=== PATIENT | male | born 1995 | race Caucasian/White ===

== ENCOUNTER → 2022-05-08 09:18 | Outpatient (CLI) | payer OTHER, SELFPAY | PROVIDERS: Family Provider Family Medicine; Visit Provider Physician Assistant | DX: J02.9 Acute pharyngitis, unspecified (principal) | CPT/HCPCS: 87070; 87147 ==

== ENCOUNTER → 2022-09-04 11:53 | Outpatient (CLI) | payer SELFPAY | PROVIDERS: Family Provider Family Medicine; Visit Provider Registered Nurse | DX: J02.9 Acute pharyngitis, unspecified (principal) | CPT/HCPCS: 87070 ==

== ENCOUNTER → 2023-07-03 | Outpatient (CLI) | payer OTHER, SELFPAY ==
--- NOTE | 2023-07-03 | DI.ECHO.S_ITS ---
[place] +---------+ [facility] +---------+ : : [address] : : : : [id number] : : : : Phone: [phone]+ Echocardiogram Report + + :Name: NOEL NGUYEN Study Date: 07/03/2023 Height: 71 in : :[facility] ReadingLocation: Weight: 190 lb : : Gender: Male BSA: 2.1 m2 : :: 1995 Age: 28 yrs BP: 128/84 mmHg: :Reason For Study: PSVT : :Ordering Physician: JOHNNY, : :TIFFANY Performed By: Carie Braun : :Referring: TIFFANY JOHN : + + Interpretation Summary 1) Normal left ventricular thickness, size, wall motion, and systolic function (EF 60-65%). 2) Normal right ventricular size and function. 3) No significant valvular abnormalities. 4) Compared to the Echo done 06/28/2015, no significant change. Procedure: A two-dimensional transthoracic echocardiogram with color flow and Doppler was performed. The study quality was technically adequate. Comparison is made with the echocardiogram of 06/28/2015. The patient was in sinus rhythm with heart rates between 62-74 bpm during the exam. Left Ventricle: The left ventricle is normal in size and wall thickness. The ejection fraction is estimated to be 55-60%. Left ventricular systolic function appears normal without focal wall motion abnormalities. Diastolic parameters suggest probable normal left ventricular diastolic function and normal filling pressures. Right Ventricle: The right ventricle is normal in size and function. Atria: The left atrial size is normal. Right atrial size is normal. There is no Doppler evidence for an interatrial shunt. Mitral Valve: The mitral valve is normal in structure and function. There is trace mitral regurgitation. Aortic Valve: The aortic valve is trileaflet. The aortic valve opens well. There is no aortic valve stenosis. No aortic regurgitation is present. Tricuspid Valve: The tricuspid valve is normal in structure and function. There is mild tricuspid regurgitation. Pulmonary artery pressures cannot be estimated because of the lack of a measurable TR jet velocity. Pulmonic Valve: The pulmonic valve leaflets are thin and pliable; valve motion is normal. There is mild pulmonic regurgitation. Great Vessels: The aortic root is normal size. The dimensions of the ascending aorta are normal. The IVC is of normal diameter and collapses greater than 50% with a sniff. This suggests a low right atrial pressure of 3 mm Hg. Pericardium/ Pleura There is no pericardial effusion. There is no pleural effusion. MMode/2D Measurements & Calculations LVIDd: 5.0 cm LVOT diam: 2.4 cm LVIDs: 3.5 cm Ao root diam: 3.3 cm FS: 30.4 % asc Aorta Diam: 3.0 cm EPSS: 0.73 cm Ao Arch Diam (Prox Trans): 2.4 cm IVSd: 0.69 cm LVPWd: 0.70 cm LV paz. diameter/BSA (cm/m^2): 2.4 LV sys. diameter/BSA (cm/m^2): 1.7 LA A2 area: 15.2 cm2 RA long axis: 4.6 cm LA A4 area: 12.2 cm2 RA area: 12.4 cm2 LA length (vol): 4.1 cm RA vol: 28.6 ml LA vol: 38.6 ml RA : 13.8 ml/m2 LA vol index: 18.7 ml/m2 IVC diam: 1.7 cm RVD1 (basal): 3.8 cm RVD2 (mid): 3.4 cm TAPSE: 2.0 cm Doppler Measurements & Calculations Ao V2 max: 114.4 cm/sec LVOT Max Tom: 92.8 cm/sec Ao V2 mean: 86.2 cm/sec LV V1 max P.4 mmHg Ao max P.2 mmHg LV V1 VTI: 19.4 cm Ao mean P.2 mmHg GLENIS(I,D): 3.5 cm2 Ao V2 VTI: 24.3 cm GLENIS(V,D): 3.6 cm2 sev ratio: 0.80 GLENIS indexed to BSA (cm^2/m^2): 1.7 MV E max tom: 68.2 cm/sec PA V2 max: 86.8 cm/sec MV A max tom: 39.1 cm/sec PA V2 mean: 60.5 cm/sec MV E/A: 1.7 PA mean P.6 mmHg Med Peak E' Tom: 10.9 cm/sec PA pr(Accel): 15.6 mmHg E/E' med: 6.3 Lat Peak E' Tom: 15.0 cm/sec E/E' lat: 4.5 E/e' average: 5.4 MV dec time: 0.22 sec SVLVOT): 85.3 ml Reading Physician:04:[id number] PM
--- NOTE | 2023-07-04 08:51 | DI.NM.S_ITS ---
DATE OF SERVICE: 07/03/2023 PROCEDURE: Exercise stress test. INDICATIONS: SVT. CARDIAC STRESS: The patient underwent exercise stress test under the supervision of an attending staff. The patient walked on Ortiz protocol for 12 minutes and 4 seconds, achieved maximum heart rate of 180, which was 94% of target heart rate. Achieved 12.8 METS of workload. JAMIE positive 15%. Baseline rhythm sinus. During stress, no convincing ischemic changes seen. No significant arrhythmias seen. Resting blood pressure 120/80 and peak blood pressure 148/88 mmHg. No chest pain or anginal symptoms. Late recovery. At 9 minutes in recovery, heart rate was 101 beats per minute. CONCLUSION: Exercise stress test is negative for inducible ischemia. Walked on Ortiz protocol for 12 minutes and 4 seconds. Normal hemodynamic response except delayed recovery. At 9 minutes into the recovery, heart rate was 101 beats per minute. No anginal symptoms. No significant arrhythmias. Overall, low-risk exercise stress test. ColtonTyrell - JACY/nino/marlys doc#: [id number]/job#: [id number] dd: 07/03/2023 17:23:00 dt: 07/03/2023 23:56:00 DICTATING /COPIES TO: Michel Koch MD COPIES MNE: BIA;
== END ==
LOC: ECHO 13:49
PROVIDERS: Family Provider Family Medicine; Referring Provider Internal Medicine Cardiovascular Disease; Visit Provider Internal Medicine Cardiovascular Disease
DX: I07.1 Rheumatic tricuspid insufficiency (principal); I37.1 Nonrheumatic pulmonary valve insufficiency; I47.1 Supraventricular tachycardia
CPT/HCPCS: 93017; 93306